=== PATIENT | male | born 1935 ===

== ENCOUNTER 2024-02-04 06:34 | Day surgery (SDC) | payer OTHER, SELFPAY ==
[2024-02-01 08:35] LABS: Hematocrit 35.1 % (39.0-52.0); Hemoglobin 11.3 g/dL (13.0-18.0); Mean Corp Hgb Conc. 32.2 g/dL (33.0-37.0); Mean Corpuscular Hgb 31.7 pg (27.0-31.0); Mean Corpuscular Volume 98.6 fL (80.0-94.0); Mean Platelet Volume 9.6 fL (7.4-10.4); Platelet Count 110 10^3/uL (130-400); Red Blood Cell Count 3.56 10^6/uL (4.70-6.10); Red Cell Dist. Width 14.5 % (11.5-14.5); White Blood Cell Count 4.3 10^3/uL (4.8-10.8)
[2024-02-01 08:52] LABS: INR 0.99; PT 13.4 Sec (11.4-14.6)
[2024-02-01 08:53] LABS: APTT 33.8 Sec (23.4-35.0)
[2024-02-01 09:24] LABS: Blood Urea Nitrogen 21 mg/dl (9-20); Calcium 8.9 mg/dl (8.4-10.2); Carbon Dioxide 28 mmol/L (22-30); Chloride 95 mmol/L (98-107); Glucose 89 mg/dl (70-99); Potassium 4.5 mmol/L (3.5-5.1); Sodium 135 mmol/L (135-145); eGFR > 60.00
[2024-02-01 12:47] VITALS: BMI 23.2
[2024-02-04] VITALS (10 sets, daily range): BP systolic 155–186; BP diastolic 47–69; BMI 23.2
[2024-02-04] MEDS: DETROL LA 4 MG PO (17:32)
--- NOTE | 2024-02-04 18:40 | PTCARENOTE ---
Pt received from the PACU via bed. Transport was w/o incident. Pt is AAOx3, VSS, Pt is afebrile. CBI running without difficulty. Urine output is mostly clear, with streaks of blood, no clots noted at this time. Pt instructed on plan of care. Pt
verbalized understanding of instructions. Call zhong is within reach.
[2024-02-04] MEDS: ZESTRIL 40 MG PO (19:46)
[2024-02-04] MEDS: LIPITOR 10 MG PO (19:46)
[2024-02-04] MEDS: FLOMAX 0.8 MG PO (22:20)
[2024-02-05 03:35] VITALS: BP 144/60
--- NOTE | 2024-02-05 08:16 | W.DS.TRANS ---
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
-
Discharge Instructions:
Sleep Apnea Risk Intermediate
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
Diet No restrictions
Activity No strenuous activity
Additional Activity No strenuous exercise, heavy lifting (>20 lbs),
or vigorous activity x7 days
Driving Restrictions No driving for 24 hours
Bathing Restrictions None
Blood Work n/a
Wound Care n/a
Instructions:
Stand-Alone Forms:
Changes to Home Medications: No
Discharge Medications:
DC Medications w/original date entered in [employer]
amlodipine 2.5 mg tablet 2.5 mg PO DAILY 02/02/24
lisinopril 40 mg tablet 40 mg PO QPM 02/02/24
simvastatin 20 mg tablet 20 mg PO QPM 02/02/24
tamsulosin 0.4 mg capsule 0.8 mg PO HS 02/02/24
amoxicillin 500 mg-potassium clavulanate 125 mg tablet (Augmentin) 1 tab PO BID 5 days #10 tabs 02/05/24
phenazopyridine 200 mg tablet (Pyridium) 200 mg PO BID PRN dysuria 3 days #6 tabs 02/05/24
Home Medication Changes
Pending Results: Yes (surgical pathology (prostate chips))
Total time spent discharging patient (in min): 45
[2024-02-05 08:20] VITALS: BP 160/66
[2024-02-05] MEDS: NORVASC 2.5 MG PO (09:14)
--- NOTE | 2024-02-05 09:24 | CM ---
Met with patient at the bedside; initial assessment completed
Pharmacy verified: [facility] @ [address] [facility]
Patient and live in a one floor home; 1 step to enter; bathroom has tub w/shower; tub grab bar, shower chair
PLOF: reported he is independent with ambulation, stairs, and ADLs; Drives
No SNF or Home Health utilization history
Son will transport home
Plan: Discharge to home today; no needs
[2024-02-05 11:25] VITALS: BP 159/67
[2024-02-05] MEDS: FLOMAX 0.4 MG PO (14:54)
[2024-02-05 15:45] VITALS: BP 156/61
== END 2024-02-05 04:45 | disposition home or self-care (01) ==
LOC: SDS 06:34
PROVIDERS: ATTENDING PHYSICIAN Surgery; FAMILY PHYSICIAN Family Medicine; REFERRING PHYSICIAN Internal Medicine Cardiovascular Disease
DX: N40.1 Benign prostatic hyperplasia with lower urinary tract symptoms (principal); N13.8 Other obstructive and reflux uropathy; R33.8 Other retention of urine; N21.0 Calculus in bladder; C61 Malignant neoplasm of prostate; Z87.442 Personal history of urinary calculi
CPT/HCPCS: 52601; 88305; 36415; 80048; 85027; 85610; 85730; 88344; 93005